=== PATIENT | male | born 1950 | race Caucasian/White ===

== ENCOUNTER 2017-06-24 06:18 | Day surgery (SDC) | payer MEDICARE, OTHER ==
[~2017-06-24] VITALS: Ht 170.2 cm; Wt 109.5 kg
[2017-06-24] MEDS ORDERED: BENZOCAINE 20% 50 MCG/SPRAY 57 GM TP ONE (06:19)
[2017-06-24] MEDS ORDERED: LIDOCAINE HCL 2% 30 ML JELLY TP ONE (06:19)
[2017-06-24] MEDS ORDERED: ALBUTEROL SULFATE 2.5 MG/0.5 ML NEB SOLUTION NEB ONE (06:19)
[2017-06-24] MEDS ORDERED: LIDOCAINE HCL 4% 50 ML SOLUTION TP ONE (06:19)
[2017-06-24] MEDS ORDERED: SODIUM CHLORIDE 0.9% 1,000 ML IV ONE ×2 (06:30→06:38)
[2017-06-24] MEDS ORDERED: SIMV-259 PO (07:16)
[2017-06-24] MEDS ORDERED: CLON.5 PO (07:16)
[2017-06-24] MEDS ORDERED: LOSA50TA37 PO (07:16)
[2017-06-24] MEDS ORDERED: METF500T4 PO (07:16)
[2017-06-24] MEDS ORDERED: GABA-531 PO (07:16)
[2017-06-24] MEDS ORDERED: INSLAN SQ (07:16)
[2017-06-24] MEDS ORDERED: GLIP5 PO (07:16)
[2017-06-24] MEDS ORDERED: METO50 PO (07:16)
[2017-06-24] MEDS ORDERED: TRAZ150 PO (07:16)
[2017-06-24] MEDS ORDERED: FERR-89 PO (07:16)
[2017-06-24] MEDS ORDERED: PRAZ5 PO (07:16)
[2017-06-24] MEDS ORDERED: LORA10TA7 PO (07:16)
[2017-06-24] MEDS ORDERED: BACL10TA PO (07:16)
[2017-06-24] MEDS ORDERED: ASPI-1182 PO (07:16)
[2017-06-24] MEDS ORDERED: TRIA1CAP2 PO (07:16)
[2017-06-24] MEDS ORDERED: FentaNYL CITRATE-PF 100 MCG/2 ML VIAL ONE (07:35)
[2017-06-24] MEDS ORDERED: MIDAZOLAM HCL 2 MG/2 ML VIAL ONE (07:35)
[2017-06-24] MEDS ORDERED: MethylPREDNISolone SOD SUCC 125 MG/2 ML VIAL IVP ONE (09:15)
[2017-06-24] MEDS ORDERED: MethylPREDNISolone SOD SUCC 125 MG/2 ML VIAL ONE (09:22)
[2017-06-24] MEDS ORDERED: OXYGEN THERAPY IH SCH (20:00)
== END 2017-06-24 10:55 | disposition home or self-care (01) ==
LOC: SURGERY 06:18
PROVIDERS: ATTEND Internal Medicine Critical Care Medicine
DX: J38.4 Edema of larynx (principal); B37.0 Candidal stomatitis; M19.90 Unspecified osteoarthritis, unspecified site; E11.9 Type 2 diabetes mellitus without complications; I10 Essential (primary) hypertension; E78.00 Pure hypercholesterolemia, unspecified; Z79.4 Long term (current) use of insulin; Z79.01 Long term (current) use of anticoagulants; Z79.84 Long term (current) use of oral hypoglycemic drugs; Z98.890 Other specified postprocedural states; Z72.89 Other problems related to lifestyle; Z87.891 Personal history of nicotine dependence
CPT/HCPCS: 31623; 31624; 71010; 87015 ×2; 87070; 87101; 87147; 87205; 87220; 88108; 88312; J2250; J2930; J3010; J7030

== ENCOUNTER 2019-05-17 05:15 | Day surgery (SDC) | payer OTHER ==
[~2019-05-17] VITALS: Ht 165.1 cm; Wt 95.0 kg
[~2019-05-17 05:15] MED LIST: ASPI-1182 PO; BACL10TA PO; CLON.5 PO; FERR-89 PO; GABA-531 PO; GLIP5 PO; INSLAN SQ; LORA10TA7 PO; LOSA50TA64 PO; METF-960 PO; METO50 PO; PRAZ5 PO; SIMV-259 PO; TRAZ150 PO; TRIA1CAP2 PO
[2019-05-17] MEDS ORDERED: MIDAZOLAM HCL 2 MG/2 ML VIAL IVP ONE (05:16)
[2019-05-17] MEDS ORDERED: FentaNYL CITRATE-PF 100 MCG/2 ML VIAL IVP ONE (05:16)
[2019-05-17] MEDS ORDERED: RINGERS SOLUTION,LACTATED 500 ML IV ONE ×2 (05:18→05:30)
[2019-05-17] MEDS ORDERED: DICLOFENAC SODIUM 0.1% 2.5 ML OPHTHALMIC SOLUTION ONE (05:19)
[2019-05-17] MEDS ORDERED: PHENYLEPHRINE HCL 2.5% 2 ML OPHTHALMIC SOLUTION ONE (05:19)
[2019-05-17] MEDS ORDERED: CYCLOPENTOLATE HCL 1% 2 ML OPHTHALMIC SOLUTION ONE (05:19)
[2019-05-17] MEDS ORDERED: MOXIFLOXACIN HCL 0.5% 3 ML OPHTHALMIC SOLUTION ONE (05:19)
[2019-05-17] MEDS ORDERED: TROPICAMIDE 1% 2 ML OPHTHALMIC SOLUTION ONE (05:19)
[2019-05-17] MEDS ORDERED: TETRACAINE HCL/PF 0.5% 4 ML OPHTHALMIC SOLUTION ONE (05:19)
[2019-05-17] MEDS ORDERED: ACETAMINOPHEN 325 MG TABLET PO PRN (05:45)
[2019-05-17] MEDS ORDERED: TETRACAINE HCL/PF 0.5% 4 ML OPHTHALMIC SOLUTION OD SCH (05:45)
[2019-05-17] MEDS ORDERED: CYCLOPENTOLATE HCL 2% 2 ML OPHTHALMIC SOLUTION OD SCH (05:45)
[2019-05-17 06:57] LABS: GLUCOMETER DEV NAME(LOC) SDS.; GLUCOSE,POINT OF CARE 120 MG/DL (70-110)
[2019-05-17] MEDS ORDERED: TETRACAINE HCL/PF 0.5% 4 ML OPHTHALMIC SOLUTION OD ONE (07:00)
[2019-05-17] MEDS: CYCLOPENTOLATE HCL 1% 2 ML OPHTHALMIC SOLUTION OD SCH ×3 (07:01→07:12)
[2019-05-17] MEDS: TROPICAMIDE 1% 2 ML OPHTHALMIC SOLUTION OD SCH ×3 (07:01→07:12)
[2019-05-17] MEDS: MOXIFLOXACIN HCL 0.5% 3 ML OPHTHALMIC SOLUTION OD SCH ×3 (07:01→07:12)
[2019-05-17] MEDS: PHENYLEPHRINE HCL 2.5% 2 ML OPHTHALMIC SOLUTION OD SCH ×3 (07:01→07:11)
[2019-05-17] MEDS: DICLOFENAC SODIUM 0.1% 2.5 ML OPHTHALMIC SOLUTION OD SCH ×3 (07:01→07:12)
[2019-05-17] MEDS ORDERED: ALPRAZolam 0.5 MG TABLET PO ONE (07:15)
[2019-05-17] MEDS ORDERED: TIOT4MIS2 IH (10:05)
[2019-05-17] MEDS ORDERED: OMEP20TA2 PO (10:05)
[2019-05-17] MEDS ORDERED: MONT10TA21 PO (10:05)
[2019-05-17] MEDS ORDERED: ALBU8.5H8 IH (10:05)
[2019-05-17] MEDS ORDERED: CHOL200059 PO (10:07)
[2019-05-17] MEDS ORDERED: TAMS-13 PO (10:07)
[2019-05-17] MEDS ORDERED: CYAN50008 PO (10:07)
[2019-05-17] MEDS ORDERED: FLUT16H NASAL (10:07)
[2019-05-17] MEDS ORDERED: EPINEPHrine 1:1,000 [1 MG/ML] AMP IM ONE (12:00)
[2019-05-17] MEDS ORDERED: LIDOCAINE/PF 1% 2 ML VIAL INJ ONE (12:00)
[2019-05-17] MEDS ORDERED: HYALURONATE SODIUM 12 MG/ML 0.8 ML SYRINGE IO ONE (12:00)
[2019-05-17] MEDS ORDERED: POVIDONE-IODINE 10% 15 ML SOLUTION UD TP ONE (12:00)
[2019-05-17] MEDS ORDERED: HYALURONATE SOD/CHONDROITIN SOD 0.5 ML VIAL IO ONE (12:00)
== END 2019-05-17 09:30 | disposition home or self-care (01) ==
LOC: SURGERY 05:15
PROVIDERS: ATTEND Ophthalmology
DX: E11.36 Type 2 diabetes mellitus with diabetic cataract (principal); H25.12 Age-related nuclear cataract, left eye; I10 Essential (primary) hypertension; K21.9 Gastro-esophageal reflux disease without esophagitis; E78.5 Hyperlipidemia, unspecified; M19.90 Unspecified osteoarthritis, unspecified site; F17.210 Nicotine dependence, cigarettes, uncomplicated
CPT/HCPCS: 66982; 82962; 93005; C1716; J0171; J2250; J3010; J3490 ×2; J7120